=== PATIENT | female | born 1950 | race Caucasian/White ===

== ENCOUNTER → 2023-08-02 | Outpatient (CLI) | payer MEDICARE | END | disposition home or self-care (01) | LOC: LABPAT 15:36 | PROVIDERS: ATTEND Orthopaedic Surgery | DX: Z01.812 Encounter for preprocedural laboratory examination (principal); Z22.322 Carrier or suspected carrier of Methicillin resistant Staphylococcus aureus; M19.011 Primary osteoarthritis, right shoulder | CPT/HCPCS: 87070 ==

== ENCOUNTER → 2023-08-27 | Outpatient (CLI) | payer MEDICARE ==
[~2023-08-27] MED LIST: DOBUTamine DRIP for NUC MED 500 MG in DEXTROSE/WATER 1 250ML.BAG IV PRN; DOBUTamine DRIP for NUC MED 500 MG/250 ML BAG IV ONE
--- NOTE | 2023-08-27 19:28 | CA ---
Dobutamine Stress Echocardiogram Report Marcie Gerardo Age: 73 Gender: F : 1950 Exam Date: 08/27/2023 09:47 Exam Location: [place] Stress Ordering Physician: Dirk Chamberlain DO ([email or web address]) Referring Physician: Mery Toney Bulk Plant Operator: MELISSA GARCIA Technologist: Ht (in): 61 Wt (lb): 244 Procedure CPT: Indication: pre op clearance ICD-9 Codes: Rhythm: Patient History: Cardiac Medications: LOPRESSOR, CRESTOR, PRESSAIR, IBUPROFEN, ALAQUIST Medications in past 24 hours: Contrast: Definity Total Dose (mL): 2 Stress Results Protocol: Dobutamine Peak Dose (???g/kg/min): 30 Duration (min:sec): Atropine:(mg) None Target HR: 123 Double Product: 08042 Resting HR: 64 Resting BP: 147 / 103 Peak HR: 135 Peak BP: 155 / 78 Max Predicted HR: 145 93 % Max Predicted HR Stress Summary: BP Response: Reason for Termination: Exceeded target heart rate (85% max predicted) Cardiac Symptoms: NAUSEA ECG Analysis Resting EKG: Stress EKG: Arrhythmia: Echo Analysis Base Echo Analysis: Low Echo Anaylsis: Peak Echo Analysis: Recovery Echo: MEASUREMENTS (Male/Female) Normal Values CONCLUSIONS No ECG or echocardiographic evidence for ischemia Intermittent PVCs in a bigeminal pattern noted Stepwise augmentation of overall LV contractility without development of edema or motion abnormalities during dobutamine infusion No ST segment abnormalities and EKG Dr. Servando Sampson MD (Electronically Signed) Final Date: 27 August 2023 19:27
== END | disposition home or self-care (01) ==
LOC: RADNMMAIN 08:50
PROVIDERS: ATTEND Internal Medicine
DX: Z01.810 Encounter for preprocedural cardiovascular examination (principal); I49.3 Ventricular premature depolarization
CPT/HCPCS: C8930; J1250; 93351

== ENCOUNTER 2023-09-03 05:55 | Day surgery (SDC) | payer MEDICARE ==
[2023-08-30 11:12] VITALS: BMI 46.0
--- NOTE | 2023-09-02 08:28 | P.HPOR ---
History of Present Illness H&P Date: 09/02/23 Chief Complaint: Right shoulder pain The patient is a 73-year-old retired female who presents with progressive right shoulder pain for the past several years worsening recently. She's having pain with any attempted overhead use. She is having night symptoms. She's tried m edications in addition to injections with minimal relief. She has daily pain that limits her function and activities. Review of Systems Per HPI Past Medical History Past Medical History: Atrial Fibrillation, Asthma, Cancer, GERD/Reflux, Hyperlipidemia, Hypertension, Osteoarthritis (OA), Skin Disorder, Sleep Apnea/CPAP/BIPAP Additional Past Medical History / Comment(s): Hx right breast 2017, had chemo and radiation, took hormone supressing drug until one month ago. Seasonal allergies. Hard of hearing, has hearing aids but does not use them. Varicose vein. CPAP use. Ezcema. History of Any Multi-Drug Resistant Organisms: None Reported Past Surgical History: Appendectomy, Orthopedic Surgery, Tonsillectomy, Tubal Ligation Additional Past Surgical History / Comment(s): Varicose vein removed from left leg, right breast lumectomy, single lymph node removed, hemorrhoidectomy, bilateral carpal tunnel surgery, wisdom teeth removed. Past Anesthesia/Blood Transfusion Reactions: No Reported Reaction, Motion Sickness Additional Past Anesthesia/Blood Transfusion Reaction / Comment(s): Hx motion sickness as a child. Past Psychological History: No Psychological Hx Reported Smoking Status: Never smoker Past Alcohol Use History: None Reported Past Drug Use History: None Reported - Past Family History Father Family Medical History: Cancer Additional Family Medical History / Comment(s): Lung cancer. Medications and Allergies Home Medications Medication Instructions Recorded Confirmed Type Apixaban [Eliquis] 5 mg PO BID 08/30/23 08/30/23 History Calcium/Magnesium Unknown Dose 1 tab PO DAILY 08/30/23 08/30/23 History Cholecalciferol [Vitamin D3 (25 50 mcg PO DAILY 08/30/23 08/30/23 History Mcg = 1000 Iu)] Fluticasone Nasal [place] [Flonase 1 spray EA NOSTRIL DIRECTED PRN 08/30/23 08/30/23 History Nasal [place]] Glucosamine (Unknown Dose) 1 tab PO DAILY 08/30/23 08/30/23 History Ibuprofen 800 mg PO BID 08/30/23 08/30/23 History Immune Booster Supplement 1 tab PO DAILY 08/30/23 08/30/23 History Loratadine 10 mg PO DAILY 08/30/23 08/30/23 History Metoprolol Tartrate [Lopressor] 25 mg PO BID 08/30/23 08/30/23 History Montelukast [Singulair] 10 mg PO HS 08/30/23 08/30/23 History Multivitamins, Thera [Multivitamin 1 tab PO DAILY 08/30/23 08/30/23 History (formulary)] [place]-3/Dha/Epa/Fish Oil [Fish Oil 1 each PO DAILY 08/30/23 08/30/23 History 1,000 mg Softgel] Omeprazole [PriLOSEC] 20 mg PO QAM 08/30/23 08/30/23 History Rosuvastatin [Crestor] 10 mg PO DAILY 08/30/23 08/30/23 History Ventolin (Unknown Dose) 1 - 2 puff INHALATION DIRECTED 08/30/23 08/30/23 History PRN calcium polycarbophiL [Fibercon] 625 mg PO DAILY 08/30/23 08/30/23 History Allergies Allergy/AdvReac Type Severity Reaction Status Date / Time Iodinated Contrast Media Allergy Rash/Hives Unverified 08/30/23 10:33 Physical Examination - Shoulder right Appearance: effusion Tenderness with palpation: anterior, bicipital groove Pain: with abduction, with forward flexion ROM: forward flexion: 80 degrees ROM: internal rotation: lower lumbar ROM: external rotation: 0 degrees Crepitus with motion: Yes Strength: abduction: 5/5 Strength: external rotation: 5/5 Tests: internal impingement tests: positive, external impingment tests: positive Results The patient is a well-developed well-nourished female proximal 5 foot 3, 227 pounds of endomorphic habitus. HEENT exam is nonfocal, neck is supple. She's tender about the right anterior glenohumeral joint. She has moderate crepitus. Impingement test, Neer test, and speed tests are positive. Her distal neurovascular appears intact in the right upper extremity. - Diagnostic results Shoulder x-ray: image reviewed (2 views of the right shoulder obtaining office show severe glenohumeral joint space narrowing with [id number] changes) Assessment and Plan Assessment: Right severe glenohumeral joint osteoarthrosis History of atrial fibrillation Plan: I talked to the patient at length regarding her condition along with treatment options. At this point she is quite limited because of pain related to her right shoulder osteoarthrosis. After a thorough discussion she opts to proceed with surgery. We'll proceed with right total shoulder arthroplasty. Risks and benefits were discussed at length in layman's terms. We will reinstitute her Eliquis postoperatively.
[~2023-09-03 05:55] MED LIST changes: -DOBUTamine DRIP for NUC MED 500 MG in DEXTROSE/WATER 1 250ML.BAG IV PRN; -DOBUTamine DRIP for NUC MED 500 MG/250 ML BAG IV ONE; +TRANEXAMIC 1,000 MG/100ML-NACL 1,000 MG in SALINE 1 100ML.BAG IVPB PRN
[2023-09-03] MEDS: LACTATED RINGERS 1,000 ML IV ONE ×2 (06:15→09:29)
[2023-09-03] MEDS: ONDANSETRON 4 MG/2 ML VIAL IVP ONE (06:45)
[2023-09-03] MEDS: MELOXICAM 7.5 MG TAB PO PRN (06:45)
[2023-09-03] MEDS: ACETAMINOPHEN TAB 500 MG TAB PO PRN (06:45)
[2023-09-03] MEDS: DEXAMETHASONE SOD PHOSPHATE 4 MG/ML 1 ML VIAL IV ONE (06:45)
[2023-09-03] MEDS: fentaNYL (PF) 50 MCG/ML 2 ML AMP IVP ONE (07:00)
[2023-09-03] MEDS: MIDAZOLAM 2 MG/2 ML VIAL IV PRN (07:00)
[2023-09-03] MEDS ORDERED: HYDROmorphone 0.5 MG/0.5 ML SYRINGE IVP PRN (07:00)
[2023-09-03] MEDS: ceFAZolin 1,000 MG in SODIUM CHLORIDE 0.9% 1,000 ML IRRIGATION ONE (08:02)
[2023-09-03] MEDS ORDERED: SENNOSIDES-DOCUSATE SODIUM 1 EACH TAB PO PRN (09:43)
[2023-09-03] MEDS ORDERED: HYDROmorphone 1 MG/ML 1 ML SYRINGE IVP PRN (09:43)
--- NOTE | 2023-09-03 09:48 | P.OP ---
Date of Procedure: 09/03/23 Preoperative Diagnosis: Severe right glenohumeral joint osteoarthrosis Postoperative Diagnosis: Same Procedure(s) Performed: Right total shoulder arthroplasty Implants: [employer] size 10 press-fit humeral stem, size 10 metaphysis, 44 x 18 eccentric humeral head, 44 mm cemented central peg glenoid component. Anesthesia: yeny MELÉNDEZ Surgeon: Daniel Arguello Manager Imaging #1: Diego Pierce Estimated Blood Loss (ml): 150 Pathology: none sent Condition: stable Disposition: PACU Indications for Procedure: The patient is a 73-year-old female who presents with progressive right shoulder pain and stiffness related to her right shoulder osteoarthrosis despite conservative measures. A discussion of the risks and benefits of operative intervention versus continued conservative measures was made with the patient. She opted to proceed with surgery. Operative risks include infection, neurovascular injury, development of blood clots, fracture, possible component loosening/failure possible need for subsequent procedures was discussed. Informed consent was obtained. Operative Findings: As below Description of Procedure: The patient was brought to the operating room, and after induction of general anesthesia was placed in the beachchair position. The bony prominences were appropriately padded. The right upper extremity was prepped and draped in normal fashion. A deltopectoral incision was then made lateral to the coracoid process extending approximately 12 cm. The skin was incised sharply. Subcutaneous tissues were divided bluntly. Electrocautery was used for hemostasis. The deltopectoral interval was identified and the cephalic vein gently retracted laterally with the deltoid. Subdeltoid adhesions were bluntly dissected. A self-retaining retractor was placed. The clavipectoral fascia was opened and the conjoined tendon gently retracted medially. The upper one third of the pectoralis major was released to help facilitate exposure. The biceps was identified and the sheath was opened. The rotator interval was opened. The biceps was tenotomized and allowed to retract distally. The lesser tuberosity osteotomy was performed with a small sagittal saw. This completed with an osteotome. The humeral head was then exposed releasing the capsule off the humeral neck. The shoulder was gently dislocated. A starting hole was made in the head in line with the humeral shaft. The shaft was reamed by hand up to 10 mm. There is good distal chatter. The cutting guide was placed planning on a cut flush with the rotator cuff insertion and 30 of retroversion. The cutting block was pinned in place. The humeral head cut was then made. Residual inferior osteophytes were carefully removed flush with the jamul cortical bone. A posterior glenoid retractor was placed. The glenoid was then exposed releasing the labrum from the 12-6 o'clock position. Residual labral tissue was removed. The glenoid sized most appropriate 44 mm. A guidewire was then inserted planning on the appropriate version. The glenoid was reamed down to a bleeding bony surface. The central pedicle was drilled. The alignment guide was placed in the peripheral peg holes drilled. The trial size 44 mm glenoid was placed and was fully seated. There was good anterior to posterior and inferior to superior fit. The trial component was removed. Pulsatile lavage was utilized. The bony surface was dried. The peripheral peg holes were then pressurized with cement utilizing a syringe. Excess cement was removed. A central peg glenoid was then placed and was fully seated. This was gently impacted. This was held in place until the cement had sufficiently hardened. Attention was then paid again towards preparing the proximal humerus. The appropriate broach was placed in 30 of retroversion and was fully seated. An eccentric 44 x 18 mm humeral head was placed. The shoulder was gently reduced. It was taken through a range of motion. It was felt to be stable in flexion and extension with internal and external rotation. I felt there was adequate scientology of soft tissue tension. The shoulder was gently dislocated. The trial components were then removed. A #2 Ethibond was placed laterally for reattachment of the lesser tuberosity. The humeral stem was inserted in 30 of retroversion and was fully seated. There was good rotational stability. The eccentric 44 x 18 mm humeral head was gently impacted. The shoulder was then gently reduced and taken through range of motion and was felt to be stable. Pulsatile lavage was utilized. Lesser tuberosity was reattached utilizing #2 Ethibond suture. The rotator interval was closed with #2 Ethibond suture. She had minimal drainage at this point therefore a deep drain was not placed. The deltopectoral interval was closed with interrupted 2-0 Vicryl sutures. The subcu tissues were reapproximated with interrupted 2-0 Vicryl sutures. The skin was reprepped with 3-0 subcuticular Prolene suture. Steri-Strips were applied. A sterile dressing was applied in addition to a sling. The patient was then awoken from general anesthesia and transferred to recovery room in good conditi on. Blood loss was estimated at 150 mL. No complications were incurred. Sponge and needle counts were correct at the end the case. Dustin SMALLWOOD assisted during the major components the case to include positioning, exposure, resection, implantation, and closure.
--- NOTE | 2023-09-03 10:13 | XR ---
EXAMINATION TYPE: XR shoulder limited RT DATE OF EXAM: 09/03/2023 COMPARISON: None HISTORY: Right shoulder arthroplasty TECHNIQUE: AP right shoulder FINDINGS: There is placement of a right humeral prosthesis. No acute fractures are evident. This rusty culates with the glenoid. IMPRESSION: 1. No acute fractures post right shoulder replacement.
--- NOTE | 2023-09-03 10:31 | P.ANPRN ---
Procedure Note - Anesthesia - Nerve Block Performed Right Interscalene Single Time Out Performed: Yes ([id number]) Date of Procedure: 09/03/23 Procedure Start Time: : Procedure Stop Time: :04 Location of Patient: PreOp Indication: Acute Post-Operative Pain, Requested by Surgeon Specifically requested for management of pain by : Daniel Arguello Sedation Type: Sedate with meaningful contact maintained Preparation: Sterile Prep Position: Supine Catheter: None Needle Types: Pajunk Needle Gauge: 21 Ultrasound used to visualize needle placement: Yes Ultrasound used to observe medication spread: Yes Injectate: 0.5% Ropivacaine (see comment for volume) (30cc) Blood Aspirated: No Pain Paresthesia on Injection Noted: No Resistance on Injection: Normal Image Stored and Saved: Yes Events: Uneventful and Well Tolerated
[2023-09-03] MEDS: ONDANSETRON 4 MG/2 ML VIAL IVP PRN (15:00)
[2023-09-03] MEDS: LACTATED RINGERS 1,000 ML IV SCH (16:25)
[2023-09-03] MEDS ORDERED: ALBUTEROL HFA INHALER INHALATION PRN (17:32)
[2023-09-03] MEDS: MONTELUKAST 10 MG TAB PO SCH (21:04)
[2023-09-03] MEDS: METOPROLOL TARTRATE 50 MG TAB PO SCH (21:04)
[2023-09-04] MEDS: HYDROcodone/APAP 5-325MG 1 EACH TAB PO PRN (00:07)
[2023-09-04] MEDS: HYDROmorphone 0.5 MG/0.5 ML SYRINGE IVP PRN (03:36)
[2023-09-04 08:56] LABS: Basophils # (A) 0.02 X 10*3/uL (0.00-0.10); Basophils % (A) 0.3 %; Eosinophils # (A) 0 X 10*3/uL (0.04-0.35); Eosinophils % (A) 0 %; HCT 32.7 % (37.2-46.3); Lymphocytes # (A) 1.65 X 10*3/uL (0.90-5.00); Lymphocytes % (A) 21.4 %; MCH 25.8 pg (27.0-32.0); MCHC 30.6 g/dL (32.0-37.0); MCV 84.3 FL (80.0-97.0); Mean Platelet Volume 10.1 FL (9.5-12.2); Monocytes # (A) 0.75 X 10*3/uL (0.20-1.00); Monocytes % (A) 9.7 %; NRBC Per 100 WBC 0 X 10*3/uL (0.00-0.01); Neutrophils # (A) 5.26 X 10*3/uL (1.80-7.70); Neutrophils % (A) 68.2 %; Platelet Count 324 X 10*3/uL (140-440); RBC 3.88 X 10*6/uL (4.10-5.20); RDW 16.4 % (11.5-14.5); WBC 7.71 X 10*3/uL (4.50-10.00)
[2023-09-04] MEDS: APIXABAN 5 MG TAB PO SCH (09:29)
[2023-09-04] MEDS: PANTOPRAZOLE 40 MG TABLET PO SCH (09:29)
[2023-09-04] MEDS: CHOLECALCIFEROL 25 MCG (1000 IU) TABLET PO SCH (09:29)
[2023-09-04] MEDS: MULTIVITAMINS, THERA 1 EACH TAB PO SCH (09:29)
[2023-09-04] MEDS: ATORVASTATIN 20 MG TAB PO SCH (09:29)
[2023-09-04] MEDS: LORATADINE 10 MG TAB PO SCH (09:29)
--- NOTE | 2023-09-04 12:42 | P.PN ---
Subjective Progress Note Date: 09/04/23 Principal diagnosis: Severe right glenohumeral joint osteoarthrosis Patient was seen at bedside this morning sitting up in chair with legs elevated in sling present to right upper extremity. Bulky dressing is present over right shoulder. Patient says pain has been manageable since surgery. Patient says she has urinated without issue since surgery. Patient says she is looking forward to working with therapy today. Patient says she does live alone at home and is hoping to go to rehab upon discharge from the hospital. Patient says she did speak with showcase trimmer this morning about possibly going to rehab. Patient says she is hoping to stay 1 more night for additional pain control and work with therapy. Patient denies any other issues at this time. Objective - Vital Signs Vital signs: Vital Signs Temp 97.7 F 09/04/23 07:22 Pulse 74 09/04/23 07:22 Resp 20 09/04/23 07:22 BP 121/71 09/04/23 07:22 Pulse Ox 94 L 09/04/23 07:22 FiO2 Intake & Output 09/03/23 09/04/23 09/04/23 18:59 06:59 18:59 Intake Total 1151 Output Total 150 Balance 1001 Weight 108.6 kg Intake: IV 1151 Output: Estimated Blood Loss 150 Other: Voiding Method Toilet # Voids 2 3 - Exam Right shoulder: Incision is clean, dry, and intact. Sling is present to right upper extremity. The bulky dressing is in good condition. There is minimal soft tissue swelling and ecchymosis surrounding the medial and lateral aspects of the incision. Calf is soft, no tenderness with palpation. Plantar flexion, dorsiflexion, EHL, FHL are intact. Sensory exam to light touch throughout the extremity is intact, dorsal pedis pulses 2+. - Labs CBC & Chem 7: 09/04/23 04:09 Labs: Abnormal Lab Results - Last 24 Hours (Table) 09/04/23 Range/Units 04:09 RBC 3.88 L (4.10-5.20) X 10*6/uL Hgb 10.0 L (12.0-15.0) g/dL Hct 32.7 L (37.2-46.3) % MCH 25.8 L (27.0-32.0) pg MCHC 30.6 L (32.0-37.0) g/dL RDW 16.4 H (11.5-14.5) % Eosinophils # 0 L (0.04-0.35) X 10*3/uL Assessment and Plan Assessment: 1. Severe right glenohumeral joint osteoarthrosis -Postop day 1 status post right total shoulder arthroplasty Plan: 1. Severe right glenohumeral joint osteoarthrosis -shoulder surgery performed yesterday, 09/03/2023ight total shoulder arthroplasty. Patient stable at bedside this morning. Patient did discuss with the showcase trimmer the potential options for rehab. manager news working on Auth for [facility]. PT/OT following patient. Plan for discharge to rehab once Auth is obtained. We will continue to follow patient during stay in hospital. 2. Appreciate medical management 3. Pain management -[place] 4. DVT prophylaxis -Eliquis 5. GI prophylaxis -senna 6. PT/OT -maintain sling to right upper extremity at all times. Okay to flex and extend right elbow and right wrist. Nonweightbearing right upper extremity 7. Encourage incentive spirometer use 8. Discharge planning - Plan for discharge to rehab once Auth is obtained. Time with Patient: Less than 30
--- NOTE | 2023-09-04 13:39 | P.CONS ---
History of Present Illness - Reason for Consult Consult date: 09/04/23 medical management Requesting physician: Diego Pierce - History of Present Illness This is a 73 year old female with medical history of atrial fibrillation, asthma, hyperlipidemia, hypertension, sleep apnea, right sided breast cancer with chemo/radiation. Patient comes in for an elective right shoulder arthroplasty and is evaluated today postoperative day #1. Patient is not reporting any chest pain, shortness of breath, nausea, vomiting or diarrhea. She is passing gas, urinating without difficulty. Patient is anticoagulated outpatient with eliquis which has been resumed postoperatively. Patient medically is doing well has been up out of bed and ambulating in the room. She is nervous about discharge home and ability to perform her ADLS PT did evaluate the patient and recommending subacute rehab. Social work is on board. REVIEW OF SYSTEMS: CONSTITUTIONAL: No fever, no malaise, no fatigue. HEENT: No recent visual problems or hearing problems. Denied any sore throat. CARDIOVASCULAR: No chest pain, orthopnea, PND, no palpitations, no syncope. PULMONARY: No shortness of breath, no cough, no hemoptysis. GASTROINTESTINAL: No diarrhea, no nausea, no vomiting, no abdominal pain. NEUROLOGICAL: No headaches, no weakness, no numbness. HEMATOLOGICAL: Denies any bleeding or petechiae. GENITOURINARY: Denies any burning micturition, frequency, or urgency. MUSCULOSKELETAL/RHEUMATOLOGICAL: Denies any joint pain, swelling, or any muscle pain. ENDOCRINE: Denies any polyuria or polydipsia. The rest of the 14-point review of systems is negative. PHYSICAL EXAMINATION: GENERAL: The patient is alert and oriented x3, not in any acute distress. Well developed, well nourished. HEENT: Pupils are round and equally reacting to light. EOMI. No scleral icterus. No conjunctival pallor. Normocephalic, atraumatic. No pharyngeal erythema. No thyromegaly. CARDIOVASCULAR: S1 and S2 present. No murmurs, rubs, or gallops. PULMONARY: Chest is clear to auscultation, no wheezing or crackles. ABDOMEN: Soft, nontender, nondistended, normoactive bowel sounds. No palpable organomegaly. MUSCULOSKELETAL: No joint swelling or deformity. +2 pulses Right arm in sling. EXTREMITIES: No cyanosis, clubbing, or pedal edema. NEUROLOGICAL: Gross neurological examination did not reveal any focal deficits. SKIN: No rashes. Assessment and Plan Osteoarthritis status post right shoulder arthroplasty postoperative day #1 and PT is recommending subacute rehab on discharge Hx of paroxysmal atrial fibrillation anticoagulated with eliquis which has been resumed postoperatively Hx of asthma no acute exacerbation Sleep apnea with CPAP use Hx of hypertension currently normotensive continued on metoprolol Hx of hyperlipidemia continued on statin therapy Gastroesophageal reflux disease continued on PPI Hard of hearing GI prophylaxis DVT prophylaxis Full Code Plan Patient has been resumed on all same home medications PT recommending subacute rehab which will be arranged by social work. Continue with incentive spirometer 10 x an hour while awake. Recommend to continue on bowel regimen while on narcotics for pain management. Follow up with PCP in 1 to 2 days. Patient is cleared medically for discharge to [facility] when cleared by primary services. The impression and plan of care has been dictated by Danielle Mckenna Nurse Practitioner as directed. Dr. Hansa MD I have performed a history and physical examination and medical decision making of this patient, discussed the same with the dictator, and agree with the dictators assessment and plan as written, documented as a scribe. Based on total visit time, I have performed more than 50% of this visit. Past Medical History Past Medical History: Atrial Fibrillation, Asthma, Cancer, GERD/Reflux, Hyperlipidemia, Hypertension, Osteoarthritis (OA), Skin Disorder, Sleep Apnea/CPAP/BIPAP Additional Past Medical History / Comment(s): Hx right breast 2017, had chemo and radiation, took hormone supressing drug until one month ago. Seasonal allergies. Hard of hearing, has hearing aids but does not use them. Varicose vein. CPAP use. Ezcema. History of Any Multi-Drug Resistant Organisms: None Reported Past Surgical History: Appendectomy, Orthopedic Surgery, Tonsillectomy, Tubal Ligation Additional Past Surgical History / Comment(s): Varicose vein removed from left leg, right breast lumectomy, single lymph node removed, hemorrhoidectomy, bilateral carpal tunnel surgery, wisdom teeth removed. Past Anesthesia/Blood Transfusion Reactions: No Reported Reaction, Motion Sickness Additional Past Anesthesia/Blood Transfusion Reaction / Comm: Hx motion sickness as a child. Smoking Status: Never smoker - Past Family History Father Family Medical History: Cancer Additional Family Medical History / Comment(s): Lung cancer. Medications and Allergies Home Medications Medication Instructions Recorded Confirmed Type Apixaban [Eliquis] 5 mg PO BID 08/30/23 09/03/23 History Calcium/Magnesium Unknown Dose 1 tab PO DAILY 08/30/23 09/03/23 History Cholecalciferol [Vitamin D3 (25 50 mcg PO DAILY 08/30/23 09/03/23 History Mcg = 1000 Iu)] Fluticasone Nasal [place] [Flonase 1 spray EA NOSTRIL DIRECTED PRN 08/30/23 09/03/23 History Nasal [place]] Glucosamine (Unknown Dose) 1 tab PO DAILY 08/30/23 09/03/23 History Ibuprofen 800 mg PO BID 08/30/23 09/03/23 History Immune Booster Supplement 1 tab PO DAILY 08/30/23 09/03/23 History Loratadine 10 mg PO DAILY 08/30/23 09/03/23 History Metoprolol Tartrate [Lopressor] 25 mg PO BID 08/30/23 09/03/23 History Montelukast [Singulair] 10 mg PO HS 08/30/23 09/03/23 History Multivitamins, Thera [Multivitamin 1 tab PO DAILY 08/30/23 09/03/23 History (formulary)] [place]-3/Dha/Epa/Fish Oil [Fish Oil 1 each PO DAILY 08/30/23 09/03/23 History 1,000 mg Softgel] Omeprazole [PriLOSEC] 20 mg PO QAM 08/30/23 09/03/23 History Rosuvastatin [Crestor] 10 mg PO DAILY 08/30/23 09/03/23 History Ventolin (Unknown Dose) 1 - 2 puff INHALATION DIRECTED 08/30/23 09/03/23 History PRN calcium polycarbophiL [Fibercon] 625 mg PO DAILY 08/30/23 09/03/23 History Allergies Allergy/AdvReac Type Severity Reaction Status Date / Time Iodinated Contrast Media Allergy Rash/Hives Verified 09/03/23 06:16 Physical Exam Vitals: Vital Signs Temp Pulse Resp BP Pulse Ox 09/04/23 07:22 97.7 F 74 20 121/71 94 L 09/04/23 01:43 98.6 F 78 16 107/69 93 L 09/03/23 17:32 97.3 F L 97 19 138/77 94 L 09/03/23 13:56 82 132/77 97 04/30/24 13:41 76 142/77 96 09/03/23 13:26 75 133/77 94 L 09/03/23 13:11 74 133/81 95 09/03/23 12:56 69 136/79 96 09/03/23 12:41 77 142/76 98 09/03/23 12:26 68 139/77 96 09/03/23 12:21 97.5 F L 72 19 123/73 96 09/03/23 11:48 68 16 143/72 97 09/03/23 11:18 74 16 126/70 99 09/03/23 10:48 63 16 123/68 93 L 09/03/23 10:33 58 L 16 117/63 97 09/03/23 10:18 58 L 16 117/59 97 09/03/23 10:03 59 L 16 128/64 95 Intake and Output 09/03/23 09/04/23 09/04/23 22:59 06:59 14:59 Other: Voiding Method Toilet # Voids 2 3 Results CBC & Chem 7: 09/04/23 04:09 Labs: Abnormal Lab Results - Last 24 Hours (Table) 09/04/23 Range/Units 04:09 RBC 3.88 L (4.10-5.20) X 10*6/uL Hgb 10.0 L (12.0-15.0) g/dL Hct 32.7 L (37.2-46.3) % MCH 25.8 L (27.0-32.0) pg MCHC 30.6 L (32.0-37.0) g/dL RDW 16.4 H (11.5-14.5) % Eosinophils # 0 L (0.04-0.35) X 10*3/uL Assessment and Plan Time with Patient: Less than 30
[2023-09-04] MEDS: HYDROcodone/APAP 7.5-325MG 1 EACH TAB PO PRN (14:12)
[2023-09-04] MEDS: ACETAMINOPHEN TAB 325 MG TAB PO PRN (22:25)
[2023-09-05 07:51] VITALS: BP 114/69; PULSE 76; RESP 18; TEMP 98.9
[2023-09-05] MEDS ORDERED: CYCLOBENZAPRINE 5 MG TAB PO PRN (09:36)
--- NOTE | 2023-09-05 09:40 | P.PN ---
Subjective Progress Note Date: 09/05/23 Principal diagnosis: Status post right total shoulder arthroplasty Patient was evaluated at bedside today, they are resting in her hospital chair. Patient states that the pain is a little bit better under control today. She continues to notice some spasming in an upper extremity. She denies any headaches, lightheadedness, chest pain or shortness of breath. I did discuss w ith case management and authorization has been obtained for subacute rehab. Objective - Vital Signs Vital signs: Vital Signs Temp 98.9 F 09/05/23 07:42 Pulse 76 09/05/23 07:42 Resp 18 09/05/23 07:42 BP 114/69 09/05/23 07:42 Pulse Ox 93 L 09/05/23 07:42 FiO2 Intake & Output 09/04/23 09/05/23 09/05/23 18:59 06:59 18:59 Other: Voiding Method Toilet # Voids 4 1 - Exam Right upper extremity: Postoperative bandage was removed today at bedside, Steri-Strips and suture in good position condition. Swelling and ecchymosis present in the upper ext remity. Elbow extension and flexion are intact. Wrist extension and flexion are intact. Sensation to light touch is intact throughout the extremity. Radial and ulnar pulse are 2+ - Labs CBC & Chem 7: 09/04/23 04:09 Assessment and Plan Assessment: Postoperative day #2 status post right total shoulder arthroplasty Plan: Pain control, continue to utilize [place] as needed. Also added Flexeril 5 mg as needed for muscle spasms. Multiple stool softeners were also used at discharge DVT prophylaxis, patient's Eliquis has been resumed Wound care instructions were discussed, this to include bandaging along with showering Patient to utilize arm sling, basic hand, wrist and elbow exercises are ok Icing techniques were also discussed Encourage incentive spirometer Medical recommendations appreciated Discharge planning: Patient stable for discharge to subacute rehab today Time with Patient: Less than 30
--- NOTE | 2023-09-05 09:49 | P.DS ---
Providers Date of admission: 09/03/2023 Expected date of discharge: 09/05/23 Attending physician: Daniel Arguello Consults: 09/03/23 09:43 Consult Physician Routine Consulting Provider: Devin Vu Consult Reason/Comments: medical management Do you want consulting provider notified?: Yes Primary care physician: Alma Sibley Hospital Course: Date of admission: 09/03/2023 Date of discharge: 09/05/2023 Admission diagnosis: Status post right total shoulder arthroplasty Discharge diagnosis: Same Attending physician: Dr. Arguello Surgical procedures: Right total shoulder arthroplasty Brief history: Patient is a 73-year-old female with a history of progressive primary right shoulder osteoarthritis. At this point patient has failed conservative treatment measures and has opted to proceed with a elective right total shoulder arthroplasty. Hospital course: Details of patient's surgery can be found in operative report. Patient tolerated the procedure well and was subsequently transported to orthopedic floor. Patient's orthopeidc and medical care was provided daily. Patient had daily laboratory tests performed for evaluation of overall blood counts. Patient had daily physical therapy to include strengthening range of motion as well as education with walker ambulation. Patient was treated with Eliquis for their postoperative DVT prophylaxis during their inpatient stay. Patient was noted to have a relatively uneventful postoperative course. Patient reported satisfactory pain control with oral pain medications by postoperative day 2. Patient showed satisfactory progress with physical therapy. Patient moved steadily through the program and had no difficulty meeting the goals by postoperative day 2. Given patient's otherwise satisfactory course and having met physical therapy goals, plan is to discharge patient to subacute rehab on postoperative day 2. Discharge condition/disposition: Patient will be discharged to subacute rehab in stable condition. Discharge medications: Instructions are given on resumption of patient's normal daily medications per primary care recommendation, in addition patient will be prescribed [place] 7.5 mg / 325 mg, Flexeril 5 mg, senna S, milk of magnesia. Discharge instructions: 1. Wound care and infection precautions, keep incision dry and covered while showering, no lotions, creams, moisturizers. No soaking, tubs, pools, hottubs. Do not scrub over the incision. 2. Utilize arm sling 3. Ice and elevate when necessary. Do not exceed 20 minutes per hour with ice pack. 4. Utilize compression sleeve until seen at first follow up appointment. 5. Visiting nursing care. 6. Home physical therapy. 7. Pain meds and anticoagulants per prescription. 8. Pain medication has potential to cause constipation. Increase oral fluid and fiber intake. Contact primary care provider if you have not had a bowel movement within 48 hours after discharge 9. No anti-inflammatory medication until discussed at first post operative visit, this including Motrin, Aleve, Mobic, Diclofenac. 10. Follow up in office at 2 weeks postop with Dustin Pierce PA-C/Omid Todd 11. Follow up with your primary care doctor 7-10 days after discharge. 12. Contact [facility] with any questions, . Procedures: Right total shoulder arthroplasty Patient Condition at Discharge: Good Plan - Discharge Summary Discharge Rx Participant: No New Discharge Prescriptions: New Cyclobenzaprine [Flexeril] 5 mg PO BID PRN #20 tablet PRN Reason: Muscle Spasm Magnesium Hydroxide [Milk of Magnesia] 2,400 mg PO DAILY PRN #400 ml PRN Reason: Constipation HYDROcodone/APAP 7.5-325MG [[place] 7.5] 1 each PO Q6HR PRN #28 tab PRN Reason: Pain Sennosides/Docusate Sodium [Senna-S 8.6-50 mg Tablet] 2 each PO DAILY PRN #30 tablet PRN Reason: Constipation Continue Cholecalciferol [Vitamin D3 (25 Mcg = 1000 Iu)] 50 mcg PO DAILY Ventolin (Unknown Dose) 1 - 2 puff INHALATION DIRECTED PRN PRN Reason: Shortness Of Breath Metoprolol Tartrate [Lopressor] 25 mg PO BID Fluticasone Nasal [place] [Flonase Nasal [place]] 1 spray EA NOSTRIL DIRECTED PRN PRN Reason: Allergic Reaction Apixaban [Eliquis] 5 mg PO BID calcium polycarbophiL [Fibercon] 625 mg PO DAILY Immune Booster Supplement 1 tab PO DAILY Calcium/Magnesium Unknown Dose 1 tab PO DAILY Multivitamins, Thera [Multivitamin (formulary)] 1 tab PO DAILY Omeprazole [PriLOSEC] 20 mg PO QAM Montelukast [Singulair] 10 mg PO HS Rosuvastatin [Crestor] 10 mg PO DAILY [place]-3/Dha/Epa/Fish Oil [Fish Oil 1,000 mg Softgel] 1 each PO DAILY Loratadine 10 mg PO DAILY Glucosamine (Unknown Dose) 1 tab PO DAILY No Action Ibuprofen 800 mg PO BID Discharge Medication List Apixaban [Eliquis] 5 mg PO BID 08/30/23 [History] Calcium/Magnesium Unknown Dose 1 tab PO DAILY 08/30/23 [History] Cholecalciferol [Vitamin D3 (25 Mcg = 1000 Iu)] 50 mcg PO DAILY 08/30/23 [History] Fluticasone Nasal [place] [Flonase Nasal [place]] 1 spray EA NOSTRIL DIRECTED PRN 08/30/23 [History] Glucosamine (Unknown Dose) 1 tab PO DAILY 08/30/23 [History] Ibuprofen 800 mg PO BID 08/30/23 [History] Immune Booster Supplement 1 tab PO DAILY 08/30/23 [History] Loratadine 10 mg PO DAILY 08/30/23 [History] Metoprolol Tartrate [Lopressor] 25 mg PO BID 08/30/23 [History] Montelukast [Singulair] 10 mg PO HS 08/30/23 [History] Multivitamins, Thera [Multivitamin (formulary)] 1 tab PO DAILY 08/30/23 [History] [place]-3/Dha/Epa/Fish Oil [Fish Oil 1,000 mg Softgel] 1 each PO DAILY 08/30/23 [History] Omeprazole [PriLOSEC] 20 mg PO QAM 08/30/23 [History] Rosuvastatin [Crestor] 10 mg PO DAILY 08/30/23 [History] Ventolin (Unknown Dose) 1 - 2 puff INHALATION DIRECTED PRN 08/30/23 [History] calcium polycarbophiL [Fibercon] 625 mg PO DAILY 08/30/23 [History] Cyclobenzaprine [Flexeril] 5 mg PO BID PRN #20 tablet 09/05/23 [Rx] HYDROcodone/APAP 7.5-325MG [[place] 7.5] 1 each PO Q6HR PRN #28 tab 09/05/23 [Rx] Magnesium Hydroxide [Milk of Magnesia] 2,400 mg PO DAILY PRN #400 ml 09/05/23 [Rx] Sennosides/Docusate Sodium [Senna-S 8.6-50 mg Tablet] 2 each PO DAILY PRN #30 tablet 09/05/23 [Rx] Follow up Appointment(s)/Referral(s): Alma Sibley MD [Primary Care Provider] - 1-2 Days Omid Britton PAC [PHYSICIAN [facility]] - 2 Weeks Activity/Diet/Wound Care/Special Instructions: Orthopedic discharge instructions: 1. Keep incision covered and dry while showering 2. Utilize arm sling 3. Ice the shoulder often 4. Basic elbow, hand and wrist exercises 5. Avoid excess lifting with the right upper extremity 6. Plan [facility], contact office with any issues or questions [phone] Discharge Disposition: TRANSFER TO SNF/ECF
--- NOTE | 2023-09-06 05:53 | P.PN ---
Subjective Progress Note Date: 09/05/23 - Reason for Consult Consult date: 09/04/23 medical management Requesting physician: Diego Pierce - History of Present Illness This is a 73 year old female with medical history of atrial fibrillation, asthma, hyperlipidemia, hypertension, sleep apnea, right sided breast cancer with chemo/radiation. Patient comes in for an elective right shoulder arthroplasty and is evaluated today postoperative day #1. Patient is not reporting any chest pain, shortness of breath, nausea, vomiting or diarrhea. She is passing gas, urinating without difficulty. Patient is anticoagulated outpatient with eliquis which has been resumed postoperatively. Patient medically is doing well has been up out of bed and ambulating in the room. She is nervous about discharge home and ability to perform her ADLS PT did evaluate the patient and recommending subacute rehab. Social work is on board. 09/05/2023 Patient is seen in follow-up working with physical therapy and is status post right shoulder arthroplasty evaluated for possible ECF. Patient had currently been awaiting authorization for ECF from insurance which has been approved today. Patient will be discharged to ECF per orthopedics. Patient is afebrile with no reported chest pain or shortness of breath. Patient has been tolerating diet with no reported nausea or vomiting. Patient with incentive spirometer at the bedside, continue to encourage using at least 10 times every hour while awake. Continue with the sling as instructed with restrictions per orthopedics. Patient is medically stable for discharge to ECF. Encouraged patient to follow-up with primary care provider on discharge. Review of systems: Constitutional: No reports of fatigue, fever, or chills Cardiovascular: No reports of chest pain or palpitations Respiratory: No reports of shortness of breath or cough GI: No reports of nausea, vomiting, or diarrhea : No reports of dysuria or retention Neurovascular: Generalized reports of weakness and some right shoulder pain All medications have been reviewed PHYSICAL EXAMINATION: GENERAL: The patient is alert and oriented x3, not in any acute distress. Well developed, well nourished. Morbidly obese HEENT: Pupils are round and equally reacting to light. EOMI. No scleral icterus. No conjunctival pallor. Normocephalic, atraumatic. No pharyngeal erythema. No thyromegaly. CARDIOVASCULAR: S1 and S2 present. No murmurs, rubs, or gallops. PULMONARY: Chest is clear to auscultation, no wheezing or crackles. ABDOMEN: Soft, nontender, nondistended, normoactive bowel sounds. No palpable organomegaly. MUSCULOSKELETAL: No joint swelling or deformity. +2 pulses, Right arm in sling. EXTREMITIES: No cyanosis, clubbing, or pedal edema. NEUROLOGICAL: Gross neurological examination did not reveal any focal deficits. Diffusely weak SKIN: No rashes. Assessment: Osteoarthritis status post right shoulder arthroplasty postoperative day #2 and PT is recommending subacute rehab on discharge Hx of paroxysmal atrial fibrillation anticoagulated with eliquis which has been resumed postoperatively Hx of asthma no acute exacerbation Sleep apnea with CPAP use Hx of hypertension currently normotensive continued on metoprolol Hx of hyperlipidemia continued on statin therapy Gastroesophageal reflux disease continued on PPI Hard of hearing GI prophylaxis DVT prophylaxis Full Code Plan: Patient has been resumed on all same home medications PT recommending subacute rehab which will be arranged by social work. Insurance authorization has been obtained today and patient will be going to [facility]. Encourage patient to continue with incentive spirometer 10 x an hour while awake. Recommend to continue on bowel regimen while on narcotics for pain management. Follow up with PCP in 1 to 2 days. Patient is cleared medically for discharge to [facility] today. Thank you kindly for this consultation. We will continue to follow with orthopedics during hospitalization. The impression and plan of care has been dictated by Amparo Vegas, Nurse Practitioner as directed. Dr. Hansa MD I have performed a history and physical examination and medical decision making of this patient, discussed the same with the dictator, and agree with the dictators assessment and plan as written, documented as a scribe. Based on total visit time, I have performed more than 50% of this visit. Objective - Vital Signs Vital signs: Vital Signs Temp 98.9 F 09/05/23 07:42 Pulse 76 09/05/23 07:42 Resp 18 09/05/23 07:42 BP 114/69 09/05/23 07:42 Pulse Ox 93 L 09/05/23 07:42 FiO2 Intake & Output 09/04/23 09/05/23 09/05/23 18:59 06:59 18:59 Other: Voiding Method Toilet # Voids 4 1 - Labs CBC & Chem 7: 09/04/23 04:09
== END 2023-09-05 13:07 ==
LOC: OR 05:55 → 4SSUR 09:38 → OR 09-05 13:07
PROVIDERS: ATTEND Orthopaedic Surgery
DX: M19.011 Primary osteoarthritis, right shoulder (principal); M25.711 Osteophyte, right shoulder; G89.18 Other acute postprocedural pain; I48.91 Unspecified atrial fibrillation; J45.909 Unspecified asthma, uncomplicated; K21.9 Gastro-esophageal reflux disease without esophagitis; I10 Essential (primary) hypertension; E78.5 Hyperlipidemia, unspecified; G47.33 Obstructive sleep apnea (adult) (pediatric); Z90.89 Acquired absence of other organs; Z90.49 Acquired absence of other specified parts of digestive tract; Z98.51 Tubal ligation status; Z80.1 Family history of malignant neoplasm of trachea, bronchus and lung; Z79.01 Long term (current) use of anticoagulants; Z79.899 Other long term (current) drug therapy; Z91.041 Radiographic dye allergy status
CPT/HCPCS: 97116; 97162; 97166; 64415; 85025; 73020; 23472; C1776; J2250; J1100; J0690 ×3; J2405 ×2; J3010; J1170 ×2

== ENCOUNTER → 2024-02-05 | Outpatient (CLI) | payer MEDICARE | END | disposition home or self-care (01) | LOC: LABPAT 11:51 | PROVIDERS: ATTEND Orthopaedic Surgery | DX: Z01.818 Encounter for other preprocedural examination | CPT/HCPCS: 87070 ==

== ENCOUNTER → 2024-03-02 | Outpatient (CLI) | payer MEDICARE ==
--- NOTE | 2024-03-02 16:19 | US ---
EXAMINATION TYPE: US mass soft tissue chest/back DATE OF EXAM: 03/02/2024 COMPARISON: NONE CLINICAL INDICATION: Female, 74 years old with history of R22.2 LOCALIZED SWELLING, MASS AND LUMP, TR UNK; palpable area on left upper back, patient states it has come and gone for years, when it gets in flamed, she can squeeze out material and it will then go flat for awhile TECHNIQUE: Soft tissue scan FINDINGS: 1.8 x 1.6 x 1.3cm hypoechoic lesion with acoustic enhancement seen posteriorly, not vascul ar. IMPRESSION: Soft tissue lump in the left upper back which is indeterminate. Further evaluation with tissue swelling recommended. Findings favor complex cyst given patient's history and sonographic appe elizabeth. [facility], , 03/02/2024 4:16 PM
== END | disposition home or self-care (01) ==
LOC: RADUSWWP 14:45
PROVIDERS: ATTEND Internal Medicine
DX: R22.2 Localized swelling, mass and lump, trunk (principal)

== ENCOUNTER 2024-05-01 05:51 | Day surgery (SDC) | payer MEDICARE ==
[2024-04-24 13:58] VITALS: BMI 47.2
--- NOTE | 2024-04-30 08:34 | P.HPOR ---
History of Present Illness H&P Date: 04/30/24 Chief Complaint: Left shoulder pain The patient is a 74-year-old retired female presents with progressive left shoulder pain for the past year. It's worsened recently. She is having pain with overhead activity and at night. She's tried medications in addition to an injection with persistent/progressive pain. She notes that it limits her. Review of Systems Per HPI Past Medical History Past Medical History: Atrial Fibrillation, Asthma, Cancer, GERD/Reflux, Hearing Disorder / Deafness, Hyperlipidemia, Hypertension, Osteoarthritis (OA), Skin Disorder, Sleep Apnea/CPAP/BIPAP Additional Past Medical History / Comment(s): Rt breast cancer 2017- had chemo and radiation. Uses CPAP. Occasional excema. History of Any Multi-Drug Resistant Organisms: None Reported Past Surgical History: Appendectomy, Joint Replacement, Tonsillectomy, Tubal Ligation Additional Past Surgical History / Comment(s): Rt shoulder replacement. Bilat carpal tunnel surgery. Hemorroid removel. Varicose vein repair lt leg. Colonoscopy Past Anesthesia/Blood Transfusion Reactions: Motion Sickness Additional Past Anesthesia/Blood Transfusion Reaction / Comment(s): No hx of blood transfusion to date. Smoking Status: Never smoker - Past Family History Father Family Medical History: Cancer, Deep Vein Thrombosis (DVT) Additional Family Medical History / Comment(s): Lung cancer. Medications and Allergies Home Medications Medication Instructions Recorded Confirmed Type Apixaban [Eliquis] 5 mg PO BID 08/30/23 04/24/24 History Calcium/Magnesium Unknown Dose 1 tab PO DAILY 08/30/23 04/24/24 History Cholecalciferol [Vitamin D3 (25 50 mcg PO QAM 08/30/23 04/24/24 History Mcg = 1000 Iu)] Fluticasone Nasal [place] [Flonase 1 spray EA NOSTRIL DIRECTED PRN 08/30/23 04/24/24 History Nasal [place]] Glucosamine (Unknown Dose) 1 tab PO QAM 08/30/23 04/24/24 History Ibuprofen 800 mg PO BID 08/30/23 04/24/24 History Loratadine 10 mg PO QAM 08/30/23 04/24/24 History Metoprolol Tartrate [Lopressor] 25 mg PO BID 08/30/23 04/24/24 History Montelukast [Singulair] 10 mg PO HS 08/30/23 04/24/24 History Multivitamins, Thera [Multivitamin 1 tab PO DAILY 08/30/23 04/24/24 History (formulary)] [place]-3/Dha/Epa/Fish Oil [Fish Oil 1 each PO DAILY 08/30/23 04/24/24 History 1,000 mg Softgel] Omeprazole [PriLOSEC] 20 mg PO QAM 08/30/23 04/24/24 History Rosuvastatin [Crestor] 10 mg PO HS 08/30/23 04/24/24 History Ventolin (Unknown Dose) 1 - 2 puff INHALATION DIRECTED 08/30/23 04/24/24 [place] PRN calcium polycarbophiL [Fibercon] 625 mg PO QAM 08/30/23 04/24/24 History Sennosides/Docusate Sodium 2 each PO DAILY PRN #30 tablet 09/05/23 04/24/24 Rx [Senna-S 8.6-50 mg Tablet] Allergies Allergy/AdvReac Type Severity Reaction Status Date / Time Iodinated Contrast Media Allergy Rash/Hives Verified 04/24/24 13:37 [place] And Derivatives AdvReac / severe Verified 04/24/24 13:37 [[place]] migraine peanut AdvReac Rash/Hives/severe Verified 04/24/24 13:37 headache poppyseed oil AdvReac Swelling Verified 04/24/24 13:37 Physical Examination - Shoulder left Appearance: effusion Tenderness with palpation: anterior, bicipital groove Pain: with abduction, with forward flexion ROM: forward flexion: 120 degrees ROM: internal rotation: lower lumbar ROM: external rotation: 10 degrees Crepitus with motion: Yes Strength: abduction: 5/5 Strength: external rotation: 5/5 Tests: internal impingement tests: positive, external impingment tests: positive Results Patient is a well-developed well-nourished female approximately 5 foot 3, 247 pounds of endomorphic habitus. HEENT exam is nonfocal, neck is supple. She's tender about the anterior left glenohumeral joint. She has moderate crepitus. [place], Neer sign, and speed tests are positive. Her distal neurovascular appears intact in the left upper extremity. - Diagnostic results Shoulder x-ray: image reviewed (X-rays of the left shoulder obtained in the office show severe glenohumeral joint with [id number] changes and subchondral sclerosis.) Assessment and Plan Assessment: Severe left glenohumeral joint osteoarthrosis Plan: I talked to the patient at length regarding her condition along with treatment options. At this point she is quite symptomatic having pain and limitation secondary to her left glenohumeral joint arthrosis despite conservative measures. After a thorough discussion she opts to proceed with surgery. We will plan to proceed with left total shoulder arthroplasty. Risks and benefits were discussed at length in layman's terms. We will reinstitute her anticoagulation postoperatively.
[2024-05-01] MEDS: IV FLUID CONTINUATION 1,000 ML IV ONE ×2 (06:41)
[2024-05-01] MEDS ORDERED: HYDROmorphone 0.5 MG/0.5 ML SYRINGE IVP PRN (07:00)
[2024-05-01] MEDS: fentaNYL (PF) 50 MCG/ML 2 ML AMP IVP ONE (07:00)
[2024-05-01] MEDS: MIDAZOLAM 2 MG/2 ML VIAL IV PRN (07:00)
[2024-05-01] MEDS: MELOXICAM 7.5 MG TAB PO PRN (07:07)
[2024-05-01] MEDS: LACTATED RINGERS 1,000 ML IV SCH (07:07)
[2024-05-01] MEDS: DEXAMETHASONE SOD PHOSPHATE 4 MG/ML 1 ML VIAL IVP STA (07:08)
[2024-05-01] MEDS: ACETAMINOPHEN TAB 500 MG TAB PO PRN (07:08)
[2024-05-01] MEDS: ONDANSETRON 4 MG/2 ML VIAL IVP ONE (07:08)
[2024-05-01] MEDS ORDERED: PROPOFOL 10 MG/ML 20 ML VIAL IV ONE (07:36)
[2024-05-01] MEDS ORDERED: LIDOCAINE 1% INJ 10MG/ML (20 ML MDV) ONE (07:36)
[2024-05-01] MEDS ORDERED: fentaNYL (PF) 50 MCG/ML 2 ML AMP ONE (07:36)
[2024-05-01] MEDS ORDERED: PHENYLEPHRINE 10 MG/ML VIAL ONE (07:36)
[2024-05-01] MEDS ORDERED: NEOSTIGMINE 1 MG/ML 10 ML VIAL ONE (07:36)
[2024-05-01] MEDS ORDERED: SUCCINYLCHOLINE CHLORIDE 200 MG/10 ML VIAL IV ONE (07:36)
[2024-05-01] MEDS ORDERED: ROCURONIUM 10 MG/ML (5 ML VIAL) IV ONE (07:36)
[2024-05-01] MEDS ORDERED: KETOROLAC 15 MG/ML 1 ML VIAL ONE (07:36)
[2024-05-01] MEDS ORDERED: GLYCOPYRROLATE 0.2 MG/ML 2 ML VIAL ONE (07:36)
[2024-05-01] MEDS ORDERED: TRANEXAMIC 1,000 MG/100ML-NACL PREMIX BAG ONE (07:36)
[2024-05-01] MEDS ORDERED: ROPIVACAINE 5 MG/ML 30 ML VIAL ONE (07:36)
[2024-05-01] MEDS: ceFAZolin 1,000 MG in SODIUM CHLORIDE 0.9% 1,000 ML IRRIGATION ONE (07:41)
--- NOTE | 2024-05-01 08:32 | P.ANPRN ---
Procedure Note - Anesthesia - Nerve Block Performed Left Interscalene Single Time Out Performed: Yes ([id number]) Date of Procedure: 05/01/24 Procedure Start Time: 07:00 Procedure Stop Time: 07:04 Location of Patient: PreOp Indication: Acute Post-Operative Pain, Requested by Surgeon Specifically requested for management of pain by : Daniel Arguello Sedation Type: Sedate with meaningful contact maintained Preparation: Sterile Prep Position: Supine Catheter: None Needle Types: [place] Needle Gauge: 21 Ultrasound used to visualize needle placement: Yes Ultrasound used to observe medication spread: Yes Injectate: 0.5% Ropivacaine (see comment for volume) (30cc) Blood Aspirated: No Pain Paresthesia on Injection Noted: No Resistance on Injection: Normal Image Stored and Saved: Yes Events: Uneventful and Well Tolerated
[2024-05-01] MEDS: LACTATED RINGERS 1,000 ML IV ONE (09:32)
[2024-05-01] MEDS ORDERED: SENNOSIDES-DOCUSATE SODIUM 1 EACH TAB PO PRN (09:47)
[2024-05-01] MEDS ORDERED: hydrOXYzine pamoate 25 MG CAP PO PRN (09:47)
--- NOTE | 2024-05-01 10:04 | P.OP ---
Date of Procedure: 05/01/24 Preoperative Diagnosis: Severe left glenohumeral joint osteoarthrosis Postoperative Diagnosis: Same Procedure(s) Performed: Left total shoulder arthroplasty Implants: [employer] AP size 10 press-fit humeral stem, size 10 body, 44 x 18 eccentric humeral head, 44 mm central pegged cemented glenoid component. Anesthesia: yeny MELÉNDEZ Surgeon: Daniel Arguello Frit Mixer And Burner #1: Omid Britton Estimated Blood Loss (ml): 150 Pathology: none sent Condition: stable Disposition: PACU Indications for Procedure: The patient is a 74-year-old female who presents with progressive left shoulder pain secondary to osteoarthrosis despite conservative measures. A discussion of the risks and benefits of operative intervention versus continued conservative measures was made with the patient. She opted proceed with surgery. Operative risks include infection, neurovascular injury, development of blood clots, fracture, possible component loosening/failure and possible need for subsequent procedures was discussed. Informed consent was obtained. Operative Findings: As below Description of Procedure: The patient was brought to the operating room, and after induction of general anesthesia was placed in the beachchair position. The bony prominences were appropriately padded. The left upper extremity was prepped and draped in normal fashion. A deltopectoral incision was then made lateral to the coracoid process extending approximately 12 cm. The skin was incised sharply. Subcutaneous tissues were divided bluntly. Electrocautery was used for hemostasis. The deltopectoral interval was identified and the cephalic vein gently retracted laterally with the deltoid. Subdeltoid adhesions were bluntly dissected. A self-retaining retractor was placed. The clavipectoral fascia was opened and the conjoined tendon gently retracted medially. The upper one third of the pectoralis major was released to help facilitate exposure. The biceps was identified and the sheath was opened. The rotator interval was opened. The biceps was tenotomized and allowed to retract distally. A subscapularis peel was then performed. The subscapularis was tagged with #2 Ethibond suture. The humeral head was then exposed releasing the capsule off the humeral neck. The shoulder was gently dislocated. A starting hole was made in the head in line with the humeral shaft. The shaft was reamed by hand up to 10 mm. There is good distal chatter. The cutting guide was placed planning on 8 cut flush with the rotator cuff insertion and 30 of retroversion. The cutting block was pinned in place. The humeral head cut was then made. This measured most appropriately at 44 x 18 mm. Residual inferior osteophytes were carefully removed flush with the kake cortical bone. A posterior glenoid retractor was placed. The glenoid was then exposed releasing the labrum from the 6-12 o'clock position. Residual labral tissue was removed. The glenoid sized most appropriate 44 mm. A guidewire was then inserted planning on the appropriate version. The glenoid was reamed down to a bleeding bony surface. The central pedicle was drilled. The alignment guide was placed in the peripheral peg holes drilled. The trial size 44 mm glenoid was placed and was fully seated. There was good anterior to posterior and inferior to superior fit. The trial component was removed. Pulsatile lavage was utilized. The bony surface was dried. The peripheral peg holes were then pressurized with cement utilizing a syringe. Excess cement was removed. A central peg glenoid was then placed and was fully seated. This was gently impacted. This was held in place until the cement had sufficiently hardened. Attention was then paid again towards preparing the proximal humerus. The appropriate broach was placed in 30 of retroversion and was fully seated. An eccentric 44 x 18 mm humeral head was placed. The shoulder was gently reduced. It was taken through a range of motion. It was felt to be stable in flexion and extension with internal and external rotation. I felt there was adequate gnosticist of soft tissue tension. The shoulder was gently dislocated. The trial components were then removed. A #2 Ethibond was placed laterally for reattachment of the lesser tuberosity. The humeral stem was inserted in 30 of retroversion and was fully seated. There was good rotational stability. The eccentric 44 x 18 mm humeral head was gently impacted. The shoulder was then gently reduced and taken through range of motion and was felt to be stable. Pulsatile lavage was utilized. The subscapularis was repaired utilizing #2 Ethibond suture. The rotator interval was closed with #2 Ethibond suture. She had minimal drainage at this point therefore a deep drain was not placed. The deltopectoral interval was closed with interrupted 2-0 Vicryl sutures. The subcu tissues were reapproximated with interrupted 2-0 Vicryl sutures. The skin was reapproximated with 3-0 subcuticular Prolene suture. Steri-Strips were applied. A sterile dressing was applied in addition to a sling. The patient was then awoken from general anesthesia and transferred to recovery room in good condition. Blood loss was estimated at 150 mL. No complications were incurred. Sponge and needle counts were correct at the end the case. Omid SMALLWOOD assisted during the major components the case to include positioning, exposure, resection, implantation, and closure.
[2024-05-01] MEDS: ONDANSETRON 4 MG/2 ML VIAL IVP PRN (10:50)
--- NOTE | 2024-05-01 11:02 | XR ---
EXAMINATION TYPE: XR shoulder limited LT DATE OF EXAM: 05/01/2024 COMPARISON: NONE CLINICAL INDICATION: Female, 74 years old with history of s/p left total shoulder arthroplasty; TECHNIQUE: One view FINDINGS: Image shows placement of left total shoulder arthroplasty. Humeral stem component appears w ell seated. Alignment appears satisfactory. Soft tissue air related to recent operation. There are so me interstitial densities within the left lung and patchy basilar opacity. IMPRESSION: 1. Uncomplicated postoperative appearance left total shoulder arthroplasty. 2. Interstitial and patchy opacities in the visualized left lung. Correlate for any acute respiratory symptoms/shortness of breath. Dedicated chest x-ray as clinically indicated. [facility], , 05/01/2024 10:59 AM
[2024-05-01] MEDS: droPERidol 5 MG/2 ML VIAL IVP ONE (11:11)
[2024-05-01] MEDS: HYDROcodone/APAP 5-325MG 1 EACH TAB PO PRN (12:29)
[2024-05-01 13:38] LABS: Anisocytosis Slight; Basophils % (A) 0 %; Eosinophils % (A) 0 %; HCT 32.2 % (34.0-46.0); HGB 10.2 gm/dL (11.4-16.0); Hypochromasia Marked; Lymphocytes # (A) 0.9 k/uL (1.0-4.8); Lymphocytes % (A) 7 %; MCH 25.3 pg (25.0-35.0); MCHC 31.8 g/dL (31.0-37.0); MCV 79.6 fL (80.0-100.0); Mean Platelet Volume 7.3; Microcytosis Slight; Monocytes # (A) 0.3 k/uL (0-1.0); Monocytes % (A) 3 %; Neutrophils # (A) 10.8 k/uL (1.3-7.7); Neutrophils % (A) 90 %; Platelet Count 366 k/uL (150-450); RBC 4.04 m/uL (3.80-5.40); RDW 16.7 % (11.5-15.5)
[2024-05-01] MEDS ORDERED: ALBUTEROL NEBULIZED 2.5 MG/3 ML INHALATION PRN (17:59)
[2024-05-01] MEDS ORDERED: FLUTICASONE NASAL 50MCG/SPRAY 16GM BTL EA NOSTRIL PRN (17:59)
[2024-05-01] MEDS ORDERED: ONDANSETRON 4 MG/2 ML VIAL IVP PRN (18:01)
[2024-05-01] MEDS: MONTELUKAST 10 MG TAB PO SCH (18:31)
--- NOTE | 2024-05-01 19:37 | CONS ---
CONSULTATION REASON FOR CONSULTATION: Advice regarding asthma and other multiple medical issues, requested by Orthopedics. HISTORY OF PRESENT ILLNESS: This is a 74-year-old woman with a past medical history of atrial fibrillation, asthma, GERD, underwent left shoulder arthroplasty. There is no history of any fevers, rigors, or chills. No history of headache, loss of consciousness, or seizures. PAST MEDICAL HISTORY: Asthma, atrial fibrillation. Rest of the history and rest of the chart is also reviewed. HOME MEDICATIONS: Reviewed include FiberCon. Rest of the medications are reviewed. ALLERGIES: Reviewed include iodine contrast media. FAMILY HISTORY: History of DVT, lung cancer in the family. SOCIAL HISTORY: No history of smoking. REVIEW OF SYSTEMS: Fourteen-point review of systems is negative except as mentioned earlier. PHYSICAL EXAMINATION: VITAL SIGNS: Pulse is 75, blood pressure 158/70, respirations 18. HEENT: Conjunctivae normal. NECK: No JVD. CARDIOVASCULAR: S1, S2. RESPIRATIONS: Breath sounds diminished at the bases. ABDOMEN: Soft. LEGS: No edema. NERVOUS SYSTEM: Nonfocal. EXTREMITIES: Left shoulder, status post surgery. LABORATORY DATA: WBC 12. Rest of the labs are noted. ASSESSMENT: 1. Status post left shoulder arthroplasty. 2. Atrial fibrillation. 3. Asthma. 4. Hypertension. 5. Hyperlipidemia. 6. Family history of DVT. RECOMMENDATIONS AND DISCUSSION: I recommend to continue current management and continue symptomatic treatment. Otherwise, recommend resume the Eliquis and follow closely with Orthopedic Surgery. Incentive spirometry. We will follow the patient closely with you and follow up with Dr. Sibley may be arranged after discharge. MMODL / IJN: [id number] /
[2024-05-01] MEDS: METOPROLOL TARTRATE 25 MG TAB PO SCH (22:03)
[2024-05-01] MEDS: ATORVASTATIN 20 MG TAB PO SCH (22:04)
[2024-05-01] MEDS: APIXABAN 5 MG TAB PO SCH (22:04)
[2024-05-02] MEDS: HYDROmorphone 0.5 MG/0.5 ML SYRINGE IVP PRN ×2 (00:54→06:07)
[2024-05-02] MEDS: PANTOPRAZOLE 40 MG TABLET PO SCH (06:07)
[2024-05-02] MEDS: LORATADINE 10 MG TAB PO SCH (08:17)
[2024-05-02] MEDS: MULTIVITAMINS, THERA 1 EACH TAB PO SCH (08:17)
[2024-05-02] MEDS: CHOLECALCIFEROL 25 MCG (1000 IU) TABLET PO SCH (08:17)
[2024-05-02] MEDS ORDERED: [UNRECOGNIZED DRUG - OTHER] PO SCH (09:00)
[2024-05-02] MEDS ORDERED: CALCIUM PO SCH (09:00)
[2024-05-02] MEDS ORDERED: NON FORMULARY DRUG (Omega-3/Dha/Epa/Fish Oil [Fish Oil 1,000 Mg Softgel] 1 EACH Capsule) PO SCH (09:00)
[2024-05-02 09:10] LABS: Basophils # (A) 0.01 X 10*3/uL (0.00-0.10); Basophils % (A) 0.1 %; Eosinophils # (A) 0 X 10*3/uL (0.04-0.35); Eosinophils % (A) 0 %; HCT 29.8 % (37.2-46.3); HGB 8.7 g/dL (12.0-15.0); Lymphocytes # (A) 1.54 X 10*3/uL (0.90-5.00); Lymphocytes % (A) 20.3 %; MCH 23.8 pg (27.0-32.0); MCHC 29.2 g/dL (32.0-37.0); MCV 81.4 FL (80.0-97.0); Mean Platelet Volume 9.9 FL (9.5-12.2); Monocytes # (A) 0.76 X 10*3/uL (0.20-1.00); NRBC Per 100 WBC 0 X 10*3/uL (0.00-0.01); Neutrophils # (A) 5.26 X 10*3/uL (1.80-7.70); Neutrophils % (A) 69.3 %; Platelet Count 371 X 10*3/uL (140-440); RBC 3.66 X 10*6/uL (4.10-5.20); RDW 17.1 % (11.5-14.5); WBC 7.59 X 10*3/uL (4.50-10.00)
[2024-05-02 10:18] LABS: BUN/Creat Ratio 29.67 Ratio (12.00-20.00); Blood Urea Nitrogen 17.8 mg/dL (9.0-27.0); Calcium 8.8 mg/dL (8.7-10.3); Carbon Dioxide 20.9 mmol/L (21.6-31.8); Chloride 106 mmol/L (96-109); Glucose 143 mg/dL (70-110); Potassium 4.3 mmol/L (3.5-5.5); Sodium 139 mmol/L (135-145)
[2024-05-02] MEDS ORDERED: MAGNESIUM HYDROXIDE 2,400 MG/30 ML CUP PO PRN (13:28)
--- NOTE | 2024-05-02 13:28 | P.PN ---
Subjective Progress Note Date: 05/02/24 Principal diagnosis: Severe left glenohumeral joint osteoarthritis is Patient was seen at bedside this morning sitting up in chair with bulky dressing present over the left shoulder and same place over left upper extremity. Patient states she is in a lot of pain currently and oral medication is not helping control her pain very long. She says she is needing to use the IV pain medication a fair amount help with pain. She says she has been walking since surgery without issue and has urinated several times since surgery without issue. Patient states she has not had bowel movement yet. She says she has not had much to eat yet either. Patient is hoping stay 1 more night additionally for pain control with hopeful discharge tomorrow. Objective - Vital Signs Vital signs: Vital Signs Temp 97.8 F 05/02/24 07:40 Pulse 74 05/02/24 07:40 Resp 16 05/02/24 07:40 BP 170/103 05/02/24 07:40 Pulse Ox 95 05/02/24 07:40 FiO2 Intake & Output 05/01/24 05/02/24 05/02/24 18:59 06:59 18:59 Intake Total 2071 Output Total 150 Balance 1921 Weight 112.5 kg Intake: IV 1151 Intake, IV Titration 200 Amount ceFAZolin 2 gm In Sodium 200 Chloride 0.9% 50 ml @ 100 mls/hr IVPB ONCE PRN Rx# :[id number] Oral 720 Output: Estimated Blood Loss 150 Other: Voiding Method Toilet # Voids 3 1 - Exam Left shoulder: Incision is clean, dry, and intact. The bulky dressing is in good condition. There is minimal soft tissue swelling and ecchymosis surrounding the medial and lateral aspects of the incision. Calf is soft, no tenderness with palpation. Plantar flexion, dorsiflexion, EHL, FHL are intact. Sensory exam to light touch throughout the extremity is intact, dorsal pedis pulses 2+. - Labs CBC & Chem 7: 05/02/24 03:16 05/02/24 03:16 Labs: Abnormal Lab Results - Last 24 Hours (Table) 05/01/24 05/02/24 05/02/24 Range/Units 13:11 03:16 03:16 WBC 12.0 H (3.8-10.6) k/uL RBC 3.66 L (4.10-5.20) X 10*6/uL Hgb 10.2 L 8.7 L (11.4-16.0) gm/dL Hct 32.2 L 29.8 L (34.0-46.0) % MCV 79.6 L (80.0-100.0) fL MCH 23.8 L (27.0-32.0) pg MCHC 29.2 L (32.0-37.0) g/dL RDW 16.7 H 17.1 H (11.5-15.5) % Neutrophils # 10.8 H (1.3-7.7) k/uL Lymphocytes # 0.9 L (1.0-4.8) k/uL Eosinophils # 0 L (0.04-0.35) X 10*3/uL Carbon Dioxide 20.9 L (21.6-31.8) mmol/L Anion Gap 12.10 H (4.00-12.00) mmol/L BUN/Creatinine Ratio 29.67 H (12.00-20.00) Ratio Glucose 143 H (70-110) mg/dL Assessment and Plan Assessment: 1. Severe left glenohumeral joint osteoarthrosis - Postoperative day 1 status post left total shoulder arthroplasty Plan: 1. Left shoulder severe glenohumeral joint osteoarthrosis - left total shoulder arthroplasty performed yesterday, 05/01/2024. Patient stable does has morning with bulky dressing present to left shoulder and sling present to the left upper extremity. We increased pain medication to [place] 7.5 mA/325 mg and have Vistaril scheduled. Pain medication as needed. Nonweightbearing left upper extremity. Maintain sling to left upper extremity. Eliquis for DVT prophylaxis. Plan for discharge home tomorrow with home care 2. Appreciate medical management 3. pain management - Tylenol; [place]; Vistaril 4. DVT prophylaxis - Eliquis 5. GI prophylaxis - senna 6. PT/OT - nonweightbearing left upper extremity. Maintain left upper extremity in sling. Okay to flex and extend left wrist and left elbow. 7. Encourage incentive spirometer use 8. Discharge planning - plan for discharge home tomorrow with home care. Time with Patient: Less than 30
[2024-05-02] MEDS: SENNOSIDES-DOCUSATE SODIUM 1 EACH TAB PO SCH (14:03)
[2024-05-02] MEDS: HYDROcodone/APAP 5-325MG 1 EACH TAB PO PRN (17:02)
[2024-05-02] MEDS: hydrOXYzine pamoate 25 MG CAP PO SCH (17:02)
[2024-05-02] MEDS: amLODIPine 10 MG TAB PO SCH (17:02)
[2024-05-02] MEDS: HYDROcodone/APAP 7.5-325MG 1 EACH TAB PO PRN (22:19)
[2024-05-03 08:44] VITALS: BP 184/84; PULSE 87; RESP 16; TEMP 98.5
--- NOTE | 2024-05-03 11:39 | P.DS ---
Providers Date of admission: 05/01/2024 Expected date of discharge: 05/03/24 Attending physician: Daniel Arguello Consults: 05/01/24 09:47 Consult Physician Routine Consulting Provider: Devin Vu Consult Reason/Comments: medical management s/p left total shoulder arthroplasty Do you want consulting provider notified?: Yes Primary care physician: Alma Sibley Hospital Course: Date of admission: 05/01/2024 Date of discharge: 05/03/2024 Admission diagnosis: Severe left glenohumeral joint osteoarthrosis Discharge diagnosis: Same Attending physician: Dr. Arguello Surgical procedures: Left total shoulder arthroplasty Brief history: Patient is a 74-year-old female with a history of progressive primary left glenohumeral joint osteoarthrosis. At this point patient has failed conservative treatment measures and has opted to proceed with a elective left total shoulder arthroplasty. Hospital course: Details of patient's surgery can be found in operative report. Patient tolerated the procedure well and was subsequently transported to orthopedic floor. Patient's orthopeidc and medical care was provided daily. Patient had daily laboratory tests performed for evaluation of overall blood counts . Patient had daily physical therapy to include strengthening range of motion as well as education with walker ambulation. Patient was treated with Eliquis for their postoperative DVT prophylaxis during their inpatient stay. Patient was noted to have a relatively uneventful postoperative course. Patient reported satisfactory pain control with oral pain medications by postoperative day 2. Patient showed satisfactory progress with physical therapy. Patient moved steadily through the program and had no difficulty meeting the goals by postoperative day 2. Given patient's otherwise satisfactory course and having met physical therapy goals, plan is to discharge patient home on postoperative day 2. Discharge condition/disposition: Patient will be discharged home in stable condition. Discharge medications: Instructions are given on resumption of patient's normal daily medications per primary care recommendation, in addition patient will be prescribed [place]; senna; Vistaril; resume Eliquis at home normal dose. Orthopedic Discharge Instructions: 1. Wound care and infection precautions, keep incision dry and covered while showering, no lotions, creams, moisturizers. No soaking, pools, hot tubs. Do not scrub over incision. 2. Nonweightbearing left upper extremity until follow-up. 3. Ice when necessary. Do not exceed 20 minutes per hour with ice pack. 4. Utilize sling to left upper extremity until seen at first follow up appointment. 5. Pain meds and anticoagulants per prescription. 6. Pain medication has potential to cause constipation. Increase oral fluid and fiber intake. Contact primary care provider if you have not had a bowel movement within 48 hours after discharge. 7. No anti-inflammatory medication until discussed at first post operative visit, this including Motrin, Aleve, Mobic, Diclofenac. 8. Follow up in office at 2 weeks postop with Dustin Pierce PA-C / Omid Britton PA-C 9. Follow up with your primary care doctor 7-10 days after discharge. 10. Contact [facility] with any questions, . Keep incision clean, dry, intact. While showering, cover Steri-Strips with Saran wrap. Keep Steri-Strips on until follow-up appointment office in 2 weeks. Assessment: Severe left glenohumeral joint osteoarthrosis Procedures: Left total shoulder arthroplasty Patient Condition at Discharge: Good Plan - Discharge Summary Discharge Rx Participant: No New Discharge Prescriptions: New Sennosides/Docusate Sodium [Senna Plus 8.6-50 mg Softgel] 1 each PO DAILY #20 capsule HYDROcodone/APAP 7.5-325MG [[place] 7.5-325] 1 tab PO Q6HR PRN #28 tab PRN Reason: Pain hydrOXYzine pamoate [Vistaril] 25 mg PO TID PRN #21 cap PRN Reason: Pain Continue Apixaban [Eliquis] 5 mg PO BID No Action Cholecalciferol [Vitamin D3 (25 Mcg = 1000 Iu)] 50 mcg PO QAM Ventolin (Unknown Dose) 1 - 2 puff INHALATION DIRECTED PRN PRN Reason: Shortness Of Breath Metoprolol Tartrate [Lopressor] 25 mg PO BID Ibuprofen 800 mg PO BID Fluticasone Nasal [place] [Flonase Nasal [place]] 1 spray EA NOSTRIL DIRECTED PRN PRN Reason: Allergic Reaction calcium polycarbophiL [Fibercon] 625 mg PO QAM Calcium/Magnesium Unknown Dose 1 tab PO DAILY Sennosides/Docusate Sodium [Senna-S 8.6-50 mg Tablet] 2 each PO DAILY PRN #30 tablet PRN Reason: Constipation Multivitamins, Thera [Multivitamin (formulary)] 1 tab PO DAILY Omeprazole [PriLOSEC] 20 mg PO QAM Montelukast [Singulair] 10 mg PO HS Rosuvastatin [Crestor] 10 mg PO HS [place]-3/Dha/Epa/Fish Oil [Fish Oil 1,000 mg Softgel] 1 each PO DAILY Loratadine 10 mg PO QAM Glucosamine (Unknown Dose) 1 tab PO QAM Discharge Medication List Apixaban [Eliquis] 5 mg PO BID 08/30/23 [History] Calcium/Magnesium Unknown Dose 1 tab PO DAILY 08/30/23 [History] Cholecalciferol [Vitamin D3 (25 Mcg = 1000 Iu)] 50 mcg PO QAM 08/30/23 [History] Fluticasone Nasal [place] [Flonase Nasal [place]] 1 spray EA NOSTRIL DIRECTED PRN 08/30/23 [History] Glucosamine (Unknown Dose) 1 tab PO QAM 08/30/23 [History] Ibuprofen 800 mg PO BID 08/30/23 [History] Loratadine 10 mg PO QAM 08/30/23 [History] Metoprolol Tartrate [Lopressor] 25 mg PO BID 08/30/23 [History] Montelukast [Singulair] 10 mg PO HS 08/30/23 [History] Multivitamins, Thera [Multivitamin (formulary)] 1 tab PO DAILY 08/30/23 [History] [place]-3/Dha/Epa/Fish Oil [Fish Oil 1,000 mg Softgel] 1 each PO DAILY 08/30/23 [History] Omeprazole [PriLOSEC] 20 mg PO QAM 08/30/23 [History] Rosuvastatin [Crestor] 10 mg PO HS 08/30/23 [History] Ventolin (Unknown Dose) 1 - 2 puff INHALATION DIRECTED PRN 08/30/23 [History] calcium polycarbophiL [Fibercon] 625 mg PO QAM 08/30/23 [History] Sennosides/Docusate Sodium [Senna-S 8.6-50 mg Tablet] 2 each PO DAILY PRN #30 t ablet 09/05/23 [Rx] HYDROcodone/APAP 7.5-325MG [[place] 7.5-325] 1 tab PO Q6HR PRN #28 tab 05/03/24 [Rx] Sennosides/Docusate Sodium [Senna Plus 8.6-50 mg Softgel] 1 each PO DAILY #20 capsule 05/03/24 [Rx] hydrOXYzine pamoate [Vistaril] 25 mg PO TID PRN #21 cap 05/03/24 [Rx] Follow up Appointment(s)/Referral(s): Omid Britton PAC [PHYSICIAN DB2 DEVELOPER] - 2 Weeks [facility] [NON-STAFF] - 1-2 Days (Home care will call to set up appointment, any questions please calll agency. ) Patient Instructions/Handouts: Shoulder Arthroplasty (GEN) Activity/Diet/Wound Care/Special Instructions: Orthopedic Discharge Instructions: 1. Wound care and infection precautions, keep incision dry and covered while showering, no lotions, creams, moisturizers. No soaking, pools, hot tubs. Do not scrub over incision. 2. Nonweightbearing left upper extremity until follow-up. 3. Ice when necessary. Do not exceed 20 minutes per hour with ice pack. 4. Utilize sling to left upper extremity until seen at first follow up appointment. 5. Pain meds and anticoagulants per prescription. 6. Pain medication has potential to cause constipation. Increase oral fluid and fiber intake. Contact primary care provider if you have not had a bowel movement within 48 hours after discharge. 7. No anti-inflammatory medication until discussed at first post operative visit, this including Motrin, Aleve, Mobic, Diclofenac. 8. Follow up in office at 2 weeks postop with Dustin Pierce PA-C / Omid Britton PA-C 9. Follow up with your primary care doctor 7-10 days after discharge. 10. Contact [facility] with any questions, . Keep incision clean, dry, intact. While showering, cover Steri-Strips with Saran wrap. Keep Steri-Strips on until follow-up appointment office in 2 weeks. Discharge Disposition: HOME SELF-CARE
--- NOTE | 2024-05-03 11:58 | P.PN ---
Subjective Progress Note Date: 05/03/24 Principal diagnosis: Severe left glenohumeral joint osteoarthritis is Patient was seen at bedside this morning sitting up in chair with bulky dressing present over left shoulder and sling present to left upper extremity. Patient says she has been urinating since surgery without issue. Patient states there has been improvement in regards to the pain in left shoulder since yesterday. She says she is looking forward to going home. Patient denies any other issues at this time. Objective - Vital Signs Vital signs: Vital Signs Temp 98.5 F 05/03/24 07:00 Pulse 87 05/03/24 07:00 Resp 16 05/03/24 07:00 BP 184/84 05/03/24 07:00 Pulse Ox 93 L 05/03/24 07:00 FiO2 Intake & Output 05/02/24 05/03/24 05/03/24 18:59 06:59 18:59 Intake Total 560 Output Total 3 Balance -3 560 Intake: Oral 560 Output: Urine 3 Other: Voiding Method Toilet Diaper # Voids 5 - Exam Left shoulder: Incision is clean, dry, and intact. The bulky dressing is in good condition. There is minimal soft tissue swelling and ecchymosis surrounding the medial and lateral aspects of the incision. Calf is soft, no tenderness with palpation. Plantar flexion, dorsiflexion, EHL, FHL are intact. Sensory exam to light touch throughout the extremity is intact, dorsal pedis pulses 2+. - Labs CBC & Chem 7: 05/02/24 03:16 05/02/24 03:16 Assessment and Plan Assessment: 1. Severe left glenohumeral joint osteoarthrosis - Postoperative day 2 status post left total shoulder arthroplasty Plan: 1. Left shoulder severe glenohumeral joint osteoarthrosis - left total shoulder arthroplasty performed 05/01/2024. Patient stable does has morning with bulky dressing present to left shoulder and sling present to the left upper extremity. We increased pain medication to [place] 7.5 mg/325 mg yesterday and have Vistaril scheduled. Pain medication as needed. Nonweightbearing left upper extremity. Maintain sling to left upper extremity. Eliquis for DVT prophylaxis. Discharge home today with home. 2. Appreciate medical management 3. pain management - Tylenol; [place]; Vistaril 4. DVT prophylaxis - Eliquis 5. GI prophylaxis - senna 6. PT/OT - nonweightbearing left upper extremity. Maintain left upper extremity in sling. Okay to flex and extend left wrist and left elbow. 7. Encourage incentive spirometer use 8. Discharge planning -discharge home today with home care. Time with Patient: Less than 30
--- NOTE | 2024-05-04 09:09 | PN ---
PROGRESS NOTE DATE OF SERVICE: 05/02/2024 HISTORY OF PRESENT ILLNESS: This is a 74-year-old woman who was admitted after left shoulder arthroplasty, being closely monitored. No chest pain. No palpitation. The patient has some shoulder pain. PHYSICAL EXAMINATION: VITAL SIGNS: Pulse 76, blood pressure 160/66, respiratory rate 16. CHEST: Clear to auscultation. CARDIOVASCULAR: S1, S2. ABDOMEN: Soft. NERVOUS SYSTEM: Nonfocal. LABORATORY DATA: Hemoglobin 8.6. Rest of the labs are noted. ASSESSMENT: 1. Status post left shoulder arthroplasty. 2. Atrial fibrillation. 3. Asthma. 4. Hypertension. 5. Hyperlipidemia. 6. Family history of deep venous thrombosis. RECOMMENDATIONS: Recommend to continue current management and continue symptomatic treatment. Otherwise, continue with Eliquis. I would also recommend to add Norvasc to the current regimen. Further recommendations to follow. CHRISTINA / ROSMERY: [id number] /
--- NOTE | 2024-05-04 09:10 | PN ---
PROGRESS NOTE DATE OF SERVICE: 05/03/2024 SUBJECTIVE: This is a 74-year-old woman, who was admitted after shoulder arthroplasty. No chest pain. No palpitation. PHYSICAL EXAMINATION: VITAL SIGNS: Pulse 87, blood pressure n, respiratory rate 16. CHEST: Clear. CARDIOVASCULAR: S1, S2. ABDOMEN: Soft. NERVOUS SYSTEM: Nonfocal. LABORATORY DATA: WBC 7.59. ASSESSMENT: 1. Status post shoulder surgery. 2. Hypertension. 3. Atrial fibrillation. 4. Asthma. 5. Hyperlipidemia. 6. Family history of deep vein thrombosis. RECOMMENDATIONS: Recommend to continue current management and continue symptomatic treatment. Otherwise, at this time, I recommend resume the home medications and also recommend to add Norvasc to the current regimen. Follow with primary physician closely after discharge. CHRISTINA / RENITAN: [id number] / [id number]
== END 2024-05-03 13:33 | disposition home or self-care (01) ==
LOC: OR 05:51 → 4SSUR 11:26 → OR 05-03 13:33
PROVIDERS: ATTEND Orthopaedic Surgery
DX: M19.012 Primary osteoarthritis, left shoulder (principal); E78.5 Hyperlipidemia, unspecified; G47.30 Sleep apnea, unspecified; G89.18 Other acute postprocedural pain; I10 Essential (primary) hypertension; I48.91 Unspecified atrial fibrillation; J45.909 Unspecified asthma, uncomplicated; K21.9 Gastro-esophageal reflux disease without esophagitis; Z79.01 Long term (current) use of anticoagulants; Z79.899 Other long term (current) drug therapy; Z85.3 Personal history of malignant neoplasm of breast; Z88.8 Allergy status to other drugs, medicaments and biological substances; Z90.49 Acquired absence of other specified parts of digestive tract; Z90.89 Acquired absence of other organs; Z91.041 Radiographic dye allergy status; Z98.51 Tubal ligation status; Z79.51 Long term (current) use of inhaled steroids; Z79.82 Long term (current) use of aspirin
CPT/HCPCS: 64415; 86900; 86901; 80048; 85025 ×2; 86850; 73020; 23472; C1713; C1776; J2250; J1100; J0690 ×2; J2405; J3010; J1171; J1790

== ENCOUNTER 2024-07-20 10:15 | Day surgery (SDC) | payer MEDICARE ==
[2024-07-16 16:08] VITALS: BMI 44.4
[~2024-07-20 10:15] MED LIST changes: +LIDOCAINE 1% (10MG/ML) FOR IV START INTRADERMA PRN; -TRANEXAMIC 1,000 MG/100ML-NACL 1,000 MG in SALINE 1 100ML.BAG IVPB PRN
[2024-07-20] MEDS: LACTATED RINGERS 1,000 ML IV SCH (10:46)
[2024-07-20] MEDS: IV FLUID CONTINUATION 1,000 ML IV ONE (10:46)
[2024-07-20] MEDS ORDERED: PROPOFOL 10 MG/ML 20 ML VIAL IV ONE (11:45)
[2024-07-20 11:56] VITALS: TEMP 97.6
--- NOTE | 2024-07-20 12:14 | P.PCN ---
Date of Procedure: 07/20/24 Preoperative Diagnosis: Constipation Postoperative Diagnosis: Ascending colon polyp Procedure(s) Performed: Colonoscopy with cold forcep polypectomy Anesthesia: MAC Surgeon: Goyo Ocampo Pathology: other (Ascending colon polyp) Condition: stable Disposition: same day Indications for Procedure: 74-year-old female presents today for colonoscopy. She has history of polyps and recent constipation. Plan for colonoscopy for further evaluation. Risks, benefits and alternatives were provided to the patient. Operative Findings: Ascending colon polyp Description of Procedure: The patient was brought to the endoscopy suite and placed in left lateral decubitus position and adequate sedation was achieved using conscious sedation. Digital rectal exam was performed and mild internal hemorrhoids were palpated. An endoscope was then placed in the rectum and advanced to the cecum as identified by landmarks including the appendiceal orifice and the ileocecal valve. The prep was good. The colonoscope was then slowly withdrawn, examining for any mucosal abnormalities. The cecum, ascending, transverse, descending and sigmoid colon were visualized adequately. There were no large neoplastic lesions noted throughout the colon. A small polyp was noted in the ascending colon. Cold forcep polypectomy was performed. Hemostasis was maintained. No additional polyps were noted. No evidence of diverticulosis. Hemostasis was maintained. Retroflexion was performed in the rectum and mild internal hemorrhoid. Excess air was removed, the colonoscope withdrawn and the procedure terminated. The patient was then transferred to the recovery unit in stable condition. Repeat colonoscopy should be performed in 5 years.
[2024-07-20 12:16] VITALS: RESP 16
[2024-07-20 12:28] VITALS: BP 148/60; PULSE 76
== END 2024-07-20 13:12 | disposition home or self-care (01) ==
LOC: ORWHC2ENDO 10:15
PROVIDERS: ATTEND Surgery
DX: K63.5 Polyp of colon (principal); K64.8 Other hemorrhoids; I48.0 Paroxysmal atrial fibrillation; I10 Essential (primary) hypertension; E78.00 Pure hypercholesterolemia, unspecified; J45.20 Mild intermittent asthma, uncomplicated; G47.33 Obstructive sleep apnea (adult) (pediatric); K21.9 Gastro-esophageal reflux disease without esophagitis; Z79.01 Long term (current) use of anticoagulants; Z79.811 Long term (current) use of aromatase inhibitors; Z79.899 Other long term (current) drug therapy; Z86.0100 Personal history of colon polyps, unspecified; Z85.3 Personal history of malignant neoplasm of breast; Z91.041 Radiographic dye allergy status; Z91.010 Allergy to peanuts; Z91.018 Allergy to other foods
CPT/HCPCS: 45380; J2704

== ENCOUNTER → 2024-09-07 | Outpatient (CLI) | payer MEDICARE ==
--- NOTE | 2024-09-07 10:14 | US ---
EXAMINATION TYPE: US liver DATE OF EXAM: 09/07/2024 COMPARISON: NONE CLINICAL INDICATION: Female, 74 years old with history of R74.8 ABN LIVER ENZYMES; LFTs TECHNIQUE: Grayscale and color Doppler imaging of the right upper quadrant was performed. FINDINGS: EXAM MEASUREMENTS: Liver Length: 17.1 cm Gallbladder Wall: 0.2 cm CBD: 0.7 cm Right Kidney: 10.4x4.6x6.0 cm SENIOR ENGINEERING TECH NOTES: Pancreas: Tail obscured by overlying bowel gas Liver: Increased attenuation Gallbladder: wnl Evidence for sonographic Carpenter's sign: No CBD: dilated Right Kidney: No hydronephrosis or masses seen exam limited by bowel gas and habitus The visualized portions of the pancreas unremarkable. Diffusely increased echogenicity of the liver w ithout focal lesion. No surface nodularity. Gallbladder demonstrates no wall thickening, stones or song rrounding fluid. Negative sonographic Carpenter's sign. Common bile duct is within normal limits for pat ient's age. Right kidney demonstrates no hydronephrosis, solid mass or shadowing calculus. IMPRESSION: 1. No ultrasound evidence for acute process. 2. Hepatic steatosis. [facility], , 09/07/2024 10:11 AM
== END | disposition home or self-care (01) ==
LOC: RADUSWWP 09:42
PROVIDERS: ATTEND Internal Medicine
DX: K76.0 Fatty (change of) liver, not elsewhere classified (principal); R74.8 Abnormal levels of other serum enzymes
CPT/HCPCS: 76705